=== PATIENT | female | born 1980 ===

== ENCOUNTER 2019-09-18 18:08 | Inpatient (IN) | payer BC ==
[~2019-09-18] VITALS: Ht 160 cm; Wt 70.9 kg
[2019-09-18] MEDS ORDERED: PNV 29-1 TABLE1 EACH PO (20:09)
[2019-09-18 20:24] LABS: BASOPHILS ABSOLUTE AUTO 0.03 K/mm3 (0.00-0.23); BASOPHILS PERCENT AUTO 0 % (0-2); EOSINOPHILS PERCENT AUTO 1 % (0-6); Hemoglobin 12.8 g/dL (11.5-16.0); IMMATURE GRAN ABSOLUTE AUTO 0.04 K/mm3 (0.00-0.10); IMMATURE GRAN PERCENT AUTO 1 % (0-1); LYMPHOCYTES ABSOLUTE AUTO 1.45 K/mm3 (0.84-5.20); LYMPHOCYTES PERCENT AUTO 18 % (21-46); MONOCYTES ABSOLUTE AUTO 0.66 K/mm3 (0.16-1.47); MONOCYTES PERCENT AUTO 8 % (4-13); Mean Corpuscular HGB 30.5 pg (26.0-34.0); Mean Corpuscular HGB Conc 33.7 g/dL (31.5-36.5); Mean Corpuscular Volume 91 fL (80-100); Mean Platelet Volume 12.5 fL (9.1-12.4); NEUTROPHILS ABSOLUTE AUTO 5.84 K/mm3 (1.96-9.15); NEUTROPHILS PERCENT AUTO 72 % (41-73); Platelet Count 149 K/mm3 (150-400); RDW Coefficient Variation 13.3 % (11.7-14.2); White Blood Cell Count 8.12 K/mm3 (4.00-11.30)
--- NOTE | 2019-09-19 11:12 | NUR ---
PATIENT CARE TO [facility] FROM 0900 TILL 1100
[2019-09-19 12:07] LABS: BASOPHILS ABSOLUTE AUTO 0.02 K/mm3 (0.00-0.23); BASOPHILS PERCENT AUTO 0 % (0-2); EOSINOPHILS PERCENT AUTO 1 % (0-6); Hematocrit 34.4 % (33.0-51.0); Hemoglobin 11.6 g/dL (11.5-16.0); IMMATURE GRAN ABSOLUTE AUTO 0.04 K/mm3 (0.00-0.10); IMMATURE GRAN PERCENT AUTO 0 % (0-1); LYMPHOCYTES ABSOLUTE AUTO 1.21 K/mm3 (0.84-5.20); LYMPHOCYTES PERCENT AUTO 11 % (21-46); MONOCYTES ABSOLUTE AUTO 0.75 K/mm3 (0.16-1.47); MONOCYTES PERCENT AUTO 7 % (4-13); Mean Corpuscular HGB 30.5 pg (26.0-34.0); Mean Corpuscular HGB Conc 33.7 g/dL (31.5-36.5); Mean Corpuscular Volume 91 fL (80-100); NEUTROPHILS ABSOLUTE AUTO 8.68 K/mm3 (1.96-9.15); NEUTROPHILS PERCENT AUTO 80 % (41-73); Platelet Count 134 K/mm3 (150-400); RDW Coefficient Variation 13.4 % (11.7-14.2); RDW Standard Deviation 44.5 fL (35.1-46.3)
[2019-09-19 12:15] LABS: Mean Platelet Volume 13.3 fL (9.1-12.4)
--- NOTE | 2019-09-19 17:28 | NUR ---
NEW ICE PACK GIVEN FOR SWELLING AT [facility], CONTINUES TO USE HEATING PAD TO HELP WITH CRAMPING
--- NOTE | 2019-09-19 18:49 | NUR ---
PATIENT REFUSED BEDSIDE REPORT
--- NOTE | 2019-09-20 07:43 | NUR ---
Pt awake holding nb in arms. Denies needs at this time. Will call when finished w/breakfast for assessment.
[2019-09-20] MEDS ORDERED: IBU800 MG PO (11:36)
--- NOTE | 2019-09-20 12:55 | NUR ---
No acute changes t/o shift. ID bands matched w/nb and verification form. Pt denies additional questions/concerns. Pt d/c'd home ambulatory to care of .
== END 2019-09-20 12:55 | disposition home or self-care (01) | DRG 807 ==
LOC: BC 18:08 → OBS 18:08 → BC 18:47
PROVIDERS: ADMIT Nurse Practitioner Obstetrics & Gynecology
PROC: 10E0XZZ Delivery of Products of Conception, External Approach (ICD-10-PCS; principal; 2019-09-19)
PROC: 3E0R3BZ Introduction of Anesthetic Agent into Spinal Canal, Percutaneous Approach (ICD-10-PCS; 2019-09-19)
DX: O24.420 Gestational diabetes mellitus in childbirth, diet controlled (principal); Z37.0 Single live birth; O70.0 First degree perineal laceration during delivery; Z3A.39 39 weeks gestation of pregnancy; O69.81X0 Labor and delivery complicated by cord around neck, without compression, not applicable or unspecified
CPT/HCPCS: 36415; 51702; 82947; 85025; 86900; 86901; 99214; J1885; J2210; J2405; J2590; J3010; J7120

== ENCOUNTER → 2021-06-12 | Outpatient (CLI) | payer BC ==
[~2021-06-12] MED LIST: IBU800 MG PO; PNV 29-1 TABLE1 EACH PO
== END | disposition home or self-care (01) ==
LOC: LAB 18:54 → LAB SHORT 18:54
DX: Z11.3 Encounter for screening for infections with a predominantly sexual mode of transmission (principal)
CPT/HCPCS: 86592